=== PATIENT | female | born 1980 | race Caucasian/White ===

== ENCOUNTER 2019-02-24 11:30 | Observation (INO) | payer OTHER ==
[~2019-02-24] VITALS: Ht 172.7 cm; Wt 92.1 kg
--- OUTSIDE RECORDS SUMMARY | 2019-02-24 11:32 | XMS REPORT | Clinical Summary ---
Author Author [facility] Address Unknown Phone Unavailable Care Team Providers Care Advertising Strategist Name Role Phone Gael Hernandez MD PCP Allergies Comments Active Allergy Reactions Severity Noted Date Hydrocodone-Acetaminophen 10/04/2016 Ondansetron 10/04/2016 Medications End Date Status Medication Sig Dispensed Refills Start Date Active PROAIR HFA 90 0 mcg/actuation inhaler 8 Active FLUoxetine (PROzac) 20 MG 0 tablet 8 Active tiZANidine (ZANAFLEX) 4 0 MG tablet 8 Active zolpidem (AMBIEN) 10 mg 0 tablet 8 Active esomeprazole (NexIUM) 40 Take 40 mg by 2 MG capsule mouth daily. 8 Active Problems No known active problems Family History Medical History Relation Name Comments Cancer Brother Hypertension Father No Known Problems Mother Relation Name Status Comments Brother Alive Father Alive Mother Alive Social History Date Tobacco Use Types Packs/Day Years Used Never Smoker Smokeless Tobacco: Never Used Drinks/Week oz/Week Comments Alcohol Use socially Yes Sex Assigned at Date Recorded Not on file Industry Job Start Date Occupation Not on file Not on file Not on file Travel End Travel History Travel Start No recent travel history available. Last Filed Vital Signs Not on file Plan of Treatment Health Maintenance Due Date Last Done Comments CERVICAL CANCER SCREENING 11/05/1999 INFLUENZA VACCINE 01/24/2019 Results Not on fileafter 02/23/2018 Insurance Type Payer Benefit Subscriber ID Effective Phone Address Plan / Dates Group PPO AETNA AETNA PPO xxxxxxxxxx 2012-P OPEN resent CHOICE Advance Directives For more information, please contact: [phone] Patient Training Executive Explanation Type Date Recorded Advance Directives, 08/21/2017 5:12 AM Living Will and Medical Power of Nuclear Worker Technician Advance Directives, 08/21/2017 6:28 PM Living Will and Medical Power of Nuclear Worker Technician Advance Directives, 09/05/2017 9:01 AM Living Will and Medical Power of Nuclear Worker Technician
[2019-02-24] MEDS ORDERED: MORPHINE SULFATE 5 MG/ML VIAL IV ONE (12:15)
[2019-02-24] MEDS ORDERED: PROMETHAZINE 25MG/ NS 50ML (IV) IV ONE (12:15)
[2019-02-24] MEDS ORDERED: IOPAMIDOL 370 MG/ML 200 ML INFUS..BTL INJ ONE (12:42)
[2019-02-24] MEDS ORDERED: SODIUM CHLORIDE 0.9% 50ML 50 ML ONE (12:43)
[2019-02-24] MEDS: SODIUM CHLORIDE 0.9% 1000ML 1,000 ML IV SCH ×2 (12:45→20:30)
[2019-02-24] MEDS ORDERED: MORPHINE SULFATE INJ 4 MG/ML INJ 1ML ONE ×2 (12:46→16:05)
[2019-02-24] MEDS ORDERED: SODIUM CHLORIDE 0.9% 1000ML 1,000 ML ONE (12:46)
[2019-02-24] MEDS ORDERED: PROMETHAZINE HCL (IM) 25 MG/ML VIAL ONE (12:46)
--- NOTE | 2019-02-24 13:51 | Diagnostic Imaging Report ---
EXAM: CT of the abdomen and pelvis WITH contrast HISTORY: Right upper quadrant abdominal pain COMPARISON: None. TECHNIQUE: The abdomen and pelvis were scanned utilizing a multidetector helical scanner. Coronal and sagittal reformats are provided. PROTOCOL: Routine IV CONTRAST: 100 cc of Isovue-370. ORAL CONTRAST: None, which limits sensitivity and specificity of the exam. RADIATION DOSE: Total DLP: 753.58 mGy*cm Estimated effective dose: (DLP x 0.015 x size factor) Dose modulation, iterative reconstruction, and/or weight based adjustment of the mA/kV was utilized to reduce the radiation dose to as low as reasonably achievable. COMPLICATIONS: None FINDINGS: LOWER THORAX: Unremarkable. HEPATOBILIARY: No mass. No biliary dilation. No calcified gallstone. SPLEEN: No splenomegaly. PANCREAS: No focal masses or ductal dilatation. ADRENALS: No discrete adrenal nodule. KIDNEYS/URETERS: No hydronephrosis, stones, or definite solid mass lesions. PELVIC ORGANS/BLADDER: The urinary bladder is predominantly decompressed, which limits evaluation. The uterus is retroverted and mildly anteflexed. A 5.3 cm left adnexal fluid density, no adjacent fat stranding. GI TRACT: No dilation or wall thickening identified. The appendix is normal. PERITONEUM / RETROPERITONEUM: Trace free fluid in the pelvis, likely physiologic. LYMPH NODES: No pathologically enlarged lymph node. VESSELS: Unremarkable. BONES and JOINTS: No aggressive osseous lesion or acute fracture. Bilateral L5 pars interarticularis defects with minimal associated anterolisthesis. SOFT TISSUES: Unremarkable. IMPRESSION: 1. Probable 5.3 cm left ovarian cyst. Recommend a follow-up pelvic ultrasound in 6 weeks to assess for resolution. 2. Trace free fluid in the pelvis, likely physiologic. 3. Bilateral L5 pars interarticularis defects with minimal grade 1 anterolisthesis. 4. Otherwise, no acute CT abnormality. Specifically, no CT finding to definitively explain the right upper quadrant pain. Signed by: Amarjit Mandujano.O., M.M.M. on 02/24/2019 1:47 PM
[2019-02-24] MEDS ORDERED: ACETAMINOPHEN 325 MG TAB PO ONE (14:00)
[2019-02-24] MEDS ORDERED: D5.45%NS/KCL 20MEQ 1,000 ML IV SCH (15:12)
[2019-02-24] MEDS ORDERED: LEVOFLOXACIN 500MG/D5W 100ML IV SCH (15:15)
[2019-02-24] MEDS ORDERED: SODIUM CHLORIDE FLUSH 10 ML SYR INJ PRN (15:15)
--- OUTSIDE RECORDS SUMMARY | 2019-02-24 15:51 | XMS REPORT | Clinical Summary ---
Author Author [facility] Address Unknown Phone Unavailable Care Team Providers Care Shot Grinder Operator Name Role Phone Gael Hernandez MD PCP [...] Advance Directives For more information, please contact: [phone] Patient Line Helper Explanation Type Date Recorded Advance Directives, 08/21/2017 5:12 AM Living Will and Medical Power of Biologist Advance Directives, 08/21/2017 6:28 PM Living Will and Medical Power of Biologist Advance Directives, 09/05/2017 9:01 AM Living Will and Medical Power of Biologist
--- OUTSIDE RECORDS SUMMARY | 2019-02-24 15:51 | XMS REPORT ---
Author Author [facility] Address Unknown Phone Unavailable Care Team Providers Care Coating Manager Name Role Phone ROSEANNA PARKINSON Unavailable Unavailable Problems This patient has no known problems. Allergies, Adverse Reactions, Alerts This patient has no known allergies or adverse reactions. Medications This patient has no known medications. Results Test Description Test Time Test Comments Text Results Atomic Results Result Comments CT ABD/PEL WITH CONTRAST-HOPD 2019-02-24 13:30:00 [place] [address] Patient Name: POOJA GREEN MR #: [id number] : 1980 Age/Sex: 38/F Req #: [id number] Adm Physician: Ordered by: ORSEANNA PARKINSON MD Report #: [id number] Location: [facility] [place] Room/Bed: Procedure: HOPD/CT ABD/PEL WITH CONTRAST-HOPD Exam Date: 02/24/19 Exam Time: 1314 REPORT STATUS: Signed EXAM: CT of the abdomen and pelvis WITH contrast HISTORY: Right upper quadrant abdominal pain COMPARISON: None. TECHNIQUE: The abdomen and pelvis were scanned utilizing a multidetector helical scanner. Coronal and sagittal reformats are provided. PROTOCOL: Routine IV CONTRAST: 100 cc of Isovue-370. ORAL CONTRAST: None, which limits sensitivity and specificity of the exam. RADIATION DOSE: Total DLP: 753.58 mGy*cm Estimated effective dose: (DLP x 0.015 x size factor) Dose modulation, iterative reconstruction, and/or weight based adjustment of the mA/kV was utilized to reduce the radiation dose to as low as reasonably achievable. COMPLICATIONS: None FINDINGS: LOWER THORAX: Unremarkable. HEPATOBILIARY: No mass. No biliary dilation. No calcified gallstone. SPLEEN: No splenomegaly. PANCREAS: No focal masses or ductal dilatation. ADRENALS: No discrete adrenal nodule. KIDNEYS/URETERS: No hydronephrosis, stones, or definite solid mass lesions. PELVIC ORGANS/BLADDER: The urinary bladder is predominantly decompressed, which limits evaluation. The uterus is retroverted and mildly anteflexed. A 5.3 cm left adnexal fluid density, no adjacent fat stranding. GI TRACT: No dilation or wall thickening identified. The appendix is normal. PER ITONEUM / RETROPERITONEUM: Trace free fluid in the pelvis, likely physiologic. LYMPH NODES: No pathologically enlarged lymph node. VESSELS: Unremarkable. BONES and JOINTS: No aggressive osseous lesion or acute fracture. Bilateral L5 pars interarticularis defects with minimal associated anterolisthesis. SOFT TISSUES: Unremarkable. IMPRESSION: 1. Probable 5.3 cm left ovarian cyst. Recommend a follow-up pelvic ultrasound in 6 weeks to assess for resolution. 2. Trace free fluid in the pelvis, likely physiologic. 3. Bilateral L5 pars interarticularis defects with minimal grade 1 anterolisthesis. 4. Otherwise, no acute CT abnormality. Specifically, no CT finding to definitively explain the right upper quadrant pain. Signed by: Dr. Elijah Yan D.O., M.M.M. on 02/24/2019 1:47 PM Dictated By: ELIJAH YAN DO [id number] Transcribed By: JOSEF on 02/24/19 1647 COPY TO: ROSEANNA PARKINSON MD
[2019-02-24] MEDS ORDERED: LEVOFLOXACIN IV ONE (15:55)
[2019-02-24] MEDS ORDERED: [UNRECOGNIZED DRUG - OTHER] IV ONE (15:55)
[2019-02-24] MEDS ORDERED: LEVOFLOXACIN 500MG/D5W 100ML 100 ML IV ONE (15:57)
[2019-02-24] MEDS: LEVOFLOXACIN 500MG/D5W 100ML 100 ML IV SCH (16:00)
[2019-02-24] MEDS: MORPHINE SULFATE 2 MG/ML SYR 1ML IV PRN ×2 (16:03→20:30)
--- NOTE | 2019-02-24 16:48 | Diagnostic Imaging Report ---
RIGHT UPPER QUADRANT ULTRASOUND TECHNIQUE: Ultrasound evaluation of the right upper quadrant abdomen. Color Doppler evaluation was utilized to supplement the evaluation. HISTORY: Right upper quadrant pain COMPARISON: CT of the abdomen from the same date DISCUSSION: LIVER: No focal lesion identified. The liver measures 17 cm in length in the right mid-clavicular line. BILIARY: No gallbladder stone, wall thickening, or pericholecystic fluid. The sonographic Borja's sign is reported as negative. Common bile duct measures 0.5 cm. RIGHT KIDNEY: 9 cm in length. No hydronephrosis, solid mass, or cystic lesion identified. PANCREAS: Obscured by regional bowel gas. PERITONEUM: No free fluid. VASCULATURE: The visualized portions of the aorta and inferior vena cava appear unremarkable. The portal vein is patent with hepatopedal flow. IMPRESSION: No acute sonographic abnormality. Signed by: Dr. Elijah Chen D.O., M.M.M. on 02/24/2019 4:45 PM
[2019-02-24] MEDS ORDERED: MORPHINE SULFATE INJ 4 MG/ML INJ 1ML IV ONE (18:00)
[2019-02-24 18:34] VITALS: BP 102/71
[2019-02-24] MEDS ORDERED: SINGULAIR10 MG PO (18:34)
[2019-02-24] MEDS ORDERED: LUNESTA3 MG PO (18:34)
[2019-02-24] MEDS ORDERED: CLONAZEPAM1 MG PO (18:34)
--- NOTE | 2019-02-24 20:29 | Consultation ---
DATE OF CONSULTATION: 02/24/2019 HISTORY OF PRESENT ILLNESS: The patient is a 38-year-old female, who presents with complaints of right upper quadrant abdominal pain. She has had this pain off and on for many years, she says since she was 23, this became become worse in the last few months. She has previously been evaluated, and was scheduled for cholecystectomy about 4 years ago, but this was not done because they found out she was . Evaluation thus far has not revealed any gallstones. Apparently, she had abnormal bile duct in the past and concern that she is passing stones. The patient says still has pain now. She denies nausea, vomiting, or fever. Ultrasound of the gallbladder did not reveal any gallstones. CT scan of the abdomen also did not reveal any findings that would explain her upper abdominal pain. PAST MEDICAL HISTORY: Significant for anxiety disorder. She has a history of asthma. MEDICATIONS: Takes at home are clonazepam, Lunesta, and Singulair. ALLERGIES: SHE HAS ALLERGY TO HYDROCODONE AND ONDANSETRON. PAST SURGICAL HISTORY: She has had previous surgery on her arm. FAMILY HISTORY: Noncontributory. SOCIAL HISTORY: The patient does not smoke cigarettes. Occasionally, drinks alcohol. REVIEW OF SYSTEMS: As stated above. She has had no fever, no weight loss. PHYSICAL EXAMINATION: GENERAL: The patient is awake, alert, in no distress. VITAL SIGNS: Normal. HEENT: There is no scleral icterus. NECK: No masses. LUNGS: Equal breath sounds are clear bilaterally. CARDIAC: Regular rate and rhythm with no murmur. ABDOMEN: Mildly tender in the epigastrium. There is no mass. No organomegaly. No signs of peritonitis. EXTREMITIES: Have no edema. Pulses are palpable. NEUROLOGIC: Intact. LABORATORY DATA: White blood cell count was normal. Hemoglobin and hematocrit are normal. Chemistries also reveal normal liver function tests, normal lipase. ASSESSMENT: A 38-year-old female with persistent recurrent episodes of right upper quadrant abdominal pain, this most likely represents gallbladder disease. She is to be evaluated further with a HIDA scan. There is no signs of peritonitis or findings that would warrant immediate surgical intervention. Thank you for asking me to see Ms. Saji Field. MD DAVIS Gallegos/WALLACE Ocasio: 02/24/2019 19:30:16 /[id number]
[2019-02-24 20:30] VITALS: BP 102/71
[2019-02-24] MEDS ORDERED: AMBIEN10 MG PO (20:35)
[2019-02-24] MEDS ORDERED: NON-FORMULARY MEDICATION (Eszopiclone (Lunesta) 3 MG) PO SCH (21:00)
[2019-02-24 21:27] VITALS: BP 116/80
[2019-02-24] MEDS: CLONAZEPAM 1 MG TAB PO PRN (23:14)
[2019-02-24 23:58] VITALS: BP 122/81
[2019-02-25] VITALS (7 sets, daily range): BP systolic 100–136; BP diastolic 76–91
[2019-02-25] MEDS: MORPHINE SULFATE 2 MG/ML SYR 1ML IV PRN (00:35)
[2019-02-25] MEDS ORDERED: SODIUM CHLORIDE 0.9% 50ML 50 ML ONE ×4 (00:47→19:58)
[2019-02-25] MEDS: PROMETHAZINE HCL (IM) 25 MG/ML VIAL IV PRN ×4 (01:07→20:29)
[2019-02-25] MEDS: ZOLPIDEM TARTRATE 10 MG TAB PO SCH ×2 (01:50→21:10)
[2019-02-25] MEDS: SODIUM CHLORIDE 0.9% 1000ML 1,000 ML IV SCH ×2 (07:20→18:15)
[2019-02-25] MEDS: MONTELUKAST SODIUM 10 MG TAB PO SCH (08:48)
[2019-02-25] MEDS: HYDROMORPHONE 1MG/1ML INJ IV PRN ×3 (10:47→20:29)
--- NOTE | 2019-02-25 10:49 | Diagnostic Imaging Report ---
Hepatobiliary Scan with Gallbladder Ejection Fraction Clinical information: Abdominal pain x 2 weeks Comparison: Abdominal ultrasound 02/24/2019; CT abdo/pelvis 02/24/2019 Technique: Following intravenous administration of 6.6 millicuries of Tc-99m mebrofenin, dynamic images of the abdomen in the anterior projection were obtained through 17 minutes. Sincalide (CCK analog) 1.7 micrograms was administered intravenously over 30 minutes with additional imaging for determination of gallbladder ejection fraction. Discussion: Perfusion of the liver is normal. Extraction of tracer by the liver parenchyma is normal. Tracer appears promptly within the biliary tract. The gallbladder begins to fill at 10 minutes post injection of tracer and fills adequately. Tracer is seen in the small bowel during the sincalide infusion. There is no contractile response by the gallbladder to the pharmacologic dose of sincalide. No emptying of the gallbladder occurs during the 30 minute infusion. Impression: 1. Filling of the gallbladder excludes acute cystic duct obstruction/acute cholecystitis. 2. The gallbladder ejection fraction is undefined as there is no emptying of the gallbladder during the infusion of sincalide. This absence of a contractile response to sincalide supports the clinical diagnosis of chronic cholecystitis/gallbladder dyskinesia. Signed by: Dr. Margi Tovar M.D. on 02/25/2019 10:46 AM
[2019-02-25] MEDS: LEVOFLOXACIN 500MG/D5W 100ML 100 ML IV SCH (16:28)
[2019-02-25] MEDS: CLONAZEPAM 1 MG TAB PO PRN ×2 (16:28→22:31)
[2019-02-26] VITALS (9 sets, daily range): BP systolic 112–133; BP diastolic 73–90
[2019-02-26] MEDS: SODIUM CHLORIDE 0.9% 1000ML 1,000 ML IV SCH ×2 (05:05→14:15)
[2019-02-26] MEDS: PROMETHAZINE HCL (IM) 25 MG/ML VIAL IV PRN ×3 (05:22→17:19)
[2019-02-26] MEDS: HYDROMORPHONE 1MG/1ML INJ IV PRN ×4 (05:22→20:31)
[2019-02-26 05:25] LABS: BASOPHILS % 0.4 % (0.0-1.0); EOSINOPHILS # (AUTO) 0.1 (0.0-0.4); HEMATOCRIT 32.6 % (34.2-44.1); LYMPHOCYTES # (AUTO) 1.5 (1.0-3.2); LYMPHOCYTES % 31.7 % (18.0-39.1); MEAN CORPUSCULAR HEMOGLOBIN 31.6 pg (28-32); MEAN CORPUSCULAR HGB CONC 33.7 g/dL (31-35); MEAN CORPUSCULAR VOLUME 93.7 fL (81-99); MONOCYTES # (AUTO) 0.4 (0.2-0.8); MONOCYTES % 8.5 % (4.4-11.3); NEUTROPHILS # (AUTO) 2.7 (2.1-6.9); NEUTROPHILS % 56.2 % (38.7-80.0); PLATELET COUNT 242 x10e3/uL (140-360); RED BLOOD COUNT 3.48 x10e6/uL (3.6-5.1); RED CELL DISTRIBUTION WIDTH 12.6 % (11.7-14.4)
[2019-02-26 05:49] LABS: ANION GAP 11.2 mmol/L (8-16); BLOOD UREA NITROGEN 9 mg/dL (7-26); BUN/CREATININE RATIO 12 (6-25); CALCIUM 8.8 mg/dL (8.4-10.2); CARBON DIOXIDE 23 mmol/L (22-29); CHLORIDE 108 mmol/L (98-107); CREATININE, SERUM 0.76 mg/dL (0.57-1.11); EST GLOMERULAR FILTRATION RATE > 60 ML/MIN (60-); GLUCOSE 92 mg/dL (74-118); POTASSIUM 4.2 mmol/L (3.5-5.1); SODIUM 138 mmol/L (136-145)
[2019-02-26] MEDS: FAMOTIDINE 20 MG TAB PO SCH (07:26)
[2019-02-26] MEDS: MONTELUKAST SODIUM 10 MG TAB PO SCH (07:26)
[2019-02-26] MEDS ORDERED: BUPIVACAINE HCL 0.5% INJ 30 ML VIAL INJ ONE (09:31)
[2019-02-26] MEDS ORDERED: SODIUM CHLORIDE 0.9% 50ML 50 ML ONE ×2 (09:39→17:03)
[2019-02-26] MEDS ORDERED: TRAMADOL HCL 50 MG TAB PO PRN (13:00)
[2019-02-26] MEDS ORDERED: ONDANSETRON HCL INJ 2MG/ML 2ML 2 MG/ML VIAL IV PRN (13:00)
[2019-02-26] MEDS ORDERED: MEPERIDINE HCL INJ 25 MG/ML VIAL ONE (13:42)
[2019-02-26] MEDS: LEVOFLOXACIN 500MG/D5W 100ML 100 ML IV SCH (16:16)
[2019-02-26] MEDS ORDERED: ROCURONIUM BROMIDE 10 MG/ML 5ML VIAL ONE (17:41)
[2019-02-26] MEDS ORDERED: NEOSTIGMINE 5 MG/5ML SYR ONE (17:41)
[2019-02-26] MEDS ORDERED: GLYCOPYRROLATE INJ 1MG/ 5 ML SYR ONE (17:41)
[2019-02-26] MEDS ORDERED: PROPOFOL IV EMULSION 10 MG/ML 20 ML VIAL ONE (17:41)
[2019-02-26] MEDS ORDERED: LIDOCAINE HCL 2% LOCAL INJ 5 ML SDV VIAL INJ ONE (17:41)
[2019-02-26] MEDS ORDERED: DEXAMETHASONE SOD PHOS INJ 4 MG/ML VIAL ONE (17:41)
[2019-02-26] MEDS ORDERED: KETOROLAC TROMETHAMINE 30 MG/ML VIAL ONE (17:41)
[2019-02-26] MEDS ORDERED: SEVOFLURANE INHAL SOLN 250 ML PEN BTL ONE (17:41)
--- NOTE | 2019-02-26 17:59 | Operative Report ---
DATE OF PROCEDURE: 02/26/2019 SURGEON: Myles Yap MD PREOPERATIVE DIAGNOSIS: Acute on chronic cholecystitis. POSTOPERATIVE DIAGNOSIS: Acute on chronic cholecystitis. PROCEDURES: Diagnostic laparoscopy, laparoscopic cholecystectomy. CHEMICAL DEPENDENCY PROFESSIONAL: None. ANESTHESIA: General. INDICATIONS AND FINDINGS: The patient is a 38-year-old female presenting with complaints of severe epigastric right upper quadrant abdominal pain. Workup revealed abnormal HIDA scan with 0% ejection fraction. Surgery based on the gallbladder was distended with some changes of cholesterolosis. Cystic duct was about 2 mm in diameter. Common bile duct was about 5 mm in diameter. Liver, stomach, lower abdomen all appeared normal. TECHNIQUE: After adequate general endotracheal anesthesia with the patient in supine position, the abdomen was prepped and draped in sterile fashion with ChloraPrep solution. Skin in the umbilicus was infiltrated with 0.5% Marcaine. Incision made in the umbilicus, abdominal wall was elevated and Veress needle was introduced. Pneumoperitoneum was then created. A 10 mm trocar and cannula was then passed through the umbilical wound. Laparoscopic camera was introduced. Initial laparoscopy revealed the gallbladder to be mildly distended with some changes of cholesterolosis. Liver, stomach, and lower abdomen all appeared normal. A 10 mm trocar and cannula was placed in the epigastrium and two 5 mm trocars and cannulas were placed in the right upper quadrant, these were placed under direct vision. Fundus of the gallbladder was grasped, retracted superiorly. There were adhesions over the neck and fundus of the gallbladder involving omentum which were lysed. Neck of the gallbladder was grasped, retracted laterally. Peritoneum over the neck of the gallbladder was incised. The gallbladder cystic duct junction was dissected free. Cystic artery was also dissected free. Cystic artery was divided between hemoclips close to the gallbladder. Cystic duct was also divided between hemoclips with three clips being left on the common bile duct side. The gallbladder was dissected free from the liver using scissors and electrocautery. Once it was entirely free, it was placed into an Endopouch and brought through the epigastric cannula. There were no stones palpable. Gallbladder bed was inspected for hemostasis, which was seen to be adequate. It was irrigated with saline. All fluid aspirated, inspected once again for hemostasis, which was seen to be adequate. Instruments and cannulas were then removed. Pneumoperitoneum was evacuated. Wounds were then closed. Fascia in the umbilical and epigastric wound closed with 0 Vicryl. Skin to all wounds closed with 4-0 Vicryl in subcuticular fashion. Dermabond and sterile dressing were applied to each wound. The patient tolerated the procedure well. Estimated blood loss was 5 mL. There were no complications. All counts were correct. The patient was taken to the recovery room in satisfactory condition. MD DAVIS Gallegos/AURAL /[id number] cc: Kunal Genao MD
[2019-02-26] MEDS ORDERED: FENTANYL CITRATE/PF 100MCG/2 ML INJ ONE (18:23)
[2019-02-26] MEDS ORDERED: MIDAZOLAM HCL 2 MG/2 ML VIAL ONE (18:23)
[2019-02-26] MEDS: CLONAZEPAM 1 MG TAB PO PRN (20:33)
[2019-02-26] MEDS: ZOLPIDEM TARTRATE 10 MG TAB PO SCH (21:14)
[2019-02-27] VITALS: BP 121/78
[2019-02-27] MEDS: SODIUM CHLORIDE 0.9% 1000ML 1,000 ML IV SCH ×2 (00:15→10:30)
[2019-02-27 00:28] LABS: BASOPHILS % 0.2 % (0.0-1.0); HEMATOCRIT 33.5 % (34.2-44.1); HEMOGLOBIN 11.2 g/dL (12.0-16.0); LYMPHOCYTES # (AUTO) 0.6 (1.0-3.2); LYMPHOCYTES % 11.5 % (18.0-39.1); MEAN CORPUSCULAR HEMOGLOBIN 31.6 pg (28-32); MEAN CORPUSCULAR HGB CONC 33.4 g/dL (31-35); MEAN CORPUSCULAR VOLUME 94.6 fL (81-99); MONOCYTES # (AUTO) 0.2 (0.2-0.8); MONOCYTES % 3.7 % (4.4-11.3); NEUTROPHILS # (AUTO) 4.6 (2.1-6.9); NEUTROPHILS % 84.4 % (38.7-80.0); PLATELET COUNT 269 x10e3/uL (140-360); RED BLOOD COUNT 3.54 x10e6/uL (3.6-5.1); RED CELL DISTRIBUTION WIDTH 12.3 % (11.7-14.4)
[2019-02-27] MEDS: HYDROMORPHONE 1MG/1ML INJ IV PRN (00:30)
[2019-02-27] MEDS: PROMETHAZINE HCL (IM) 25 MG/ML VIAL IV PRN ×3 (00:44→10:45)
[2019-02-27 00:56] LABS: BLOOD UREA NITROGEN 8 mg/dL (7-26); BUN/CREATININE RATIO 10 (6-25); CALCIUM 8.7 mg/dL (8.4-10.2); CARBON DIOXIDE 23 mmol/L (22-29); CHLORIDE 106 mmol/L (98-107); CREATININE, SERUM 0.78 mg/dL (0.57-1.11); EST GLOMERULAR FILTRATION RATE > 60 ML/MIN (60-); GLUCOSE 119 mg/dL (74-118); MAGNESIUM 1.9 MG/DL (1.3-2.1); PHOSPHORUS 2.3 MG/DL (2.3-4.7); SODIUM 136 mmol/L (136-145)
[2019-02-27 04:00] VITALS: BP 121/78
[2019-02-27] MEDS ORDERED: TYLENOL # 31 EA PO (04:30)
[2019-02-27] MEDS ORDERED: HYDROCODONE/APAP 5MG-325MG TAB PO PRN (04:45)
[2019-02-27] MEDS ORDERED: ACETAMINOPHEN/CODEINE 300MG - 30MG TAB PO PRN (04:45)
[2019-02-27] MEDS ORDERED: ZOFRAN4 MG PO (04:54)
[2019-02-27] MEDS: ACETAMINOPHEN/CODEINE 300MG - 30MG TAB PO PRN ×2 (05:08→10:45)
[2019-02-27 08:00] VITALS: BP 98/56
[2019-02-27] MEDS: MONTELUKAST SODIUM 10 MG TAB PO SCH (09:45)
[2019-02-27] MEDS: FAMOTIDINE 20 MG TAB PO SCH (09:45)
[2019-02-27] MEDS ORDERED: SODIUM CHLORIDE 0.9% 50ML 50 ML ONE (10:39)
[2019-02-27 11:08] VITALS: BP 113/76
[2019-02-27 12:00] VITALS: BP 116/69
[2019-02-27] MEDS: CLONAZEPAM 1 MG TAB PO PRN (12:28)
--- NOTE | 2019-03-05 05:27 | Discharge Summary ---
ADMISSION DIAGNOSES: Abdominal pain, nausea, asthma, anxiety. DISCHARGE DIAGNOSES: Abdominal pain, nausea, asthma, anxiety, gallbladder dyskinesia. SURGICAL HISTORY: Arm surgery. FAMILY HISTORY: Noncontributory. SOCIAL HISTORY: Occasional alcohol use. HOSPITAL COURSE: A 38-year-old female, who admits with right upper quadrant abdominal pain. She was originally evaluated for cholecystectomy, though found out she was . She denies fever or chills, nausea and vomiting. Ultrasound of the abdomen shows no gallstones. HIDA scan was ordered, which then showed undefined EF of the gallbladder, which supports the clinical diagnosis of chronic cholecystitis/gallbladder dyskinesia. Surgery was consulted and the patient had a laparoscopic cholecystectomy on 02/26/2019. The patient tolerated the procedure well. Diet was advanced and she was ready to be discharged home. She will continue home medicines plus Tylenol No.3 p.r.n. pain. Vital signs stable. The patient is afebrile. The patient understands discharge instructions and agrees to plan. Dictated by Fani Gonzáles NP MD PANCHITO Nelson/WALLACE /[id number]
== END 2019-02-27 14:14 | disposition home or self-care (01) ==
LOC: FSED 11:30 → ERHOLD 15:24 → MED/SURG 18:10
PROVIDERS: ADMIT Internal Medicine; ATTEND Internal Medicine
DX: K81.0 Acute cholecystitis (principal); K82.8 Other specified diseases of gallbladder; J45.21 Mild intermittent asthma with (acute) exacerbation; F41.9 Anxiety disorder, unspecified; Z88.5 Allergy status to narcotic agent; Z88.8 Allergy status to other drugs, medicaments and biological substances
CPT/HCPCS: 36415 ×3; 47562; 74177; 76705; 78227; 80048 ×3; 80076; 81025 ×2; 83690; 83735; 84100; 85025 ×3; 88304; 93005; 96374; 96375; 99284; A9537; G0378 ×4; J1100; J1170 ×3; J1885; J1956 ×3; J2001; J2175; J2250; J2270 ×3; J2550 ×4; J2704; J3010; J3490; J7030 ×4; Q9967

== ENCOUNTER 2021-02-03 18:30 | Emergency (ER) | payer OTHER ==
[~2021-02-03] VITALS: Ht 175.3 cm; Wt 90.7 kg
[~2021-02-03 18:30] MED LIST: AMBIEN10 MG PO; CLONAZEPAM1 MG PO; LUNESTA3 MG PO; SINGULAIR10 MG PO; TYLENOL # 31 EA PO; ZOFRAN4 MG PO
[2021-02-03] MEDS ORDERED: KETOROLAC TROMETHAMINE 30 MG/ML VIAL IM STA (19:11)
[2021-02-03] MEDS ORDERED: ACETAMINOPHEN 325 MG TAB PO ONE (19:15)
[2021-02-03 19:26] VITALS: BP 132/76
[2021-02-03] MEDS ORDERED: CODEINE-GUAIFE120 ML PO (19:54)
[2021-02-03] MEDS ORDERED: CASIRIVIMAB/IMDEVIMAB 10 ML in SODIUM CHLORIDE 0.9% 100 ML IV ONE (21:45)
== END 2021-02-03 23:37 | disposition home or self-care (01) ==
LOC: ER 18:58
DX: U07.1 COVID-19 (principal)
CPT/HCPCS: 99283; J1885; U0002

== ENCOUNTER 2022-10-26 08:45 | Emergency (ER) | payer OTHER ==
[~2022-10-26] VITALS: Ht 175.3 cm; Wt 90.7 kg
[~2022-10-26 08:45] MED LIST changes: +CODEINE-GUAIFE120 ML PO
[2022-10-26] MEDS ORDERED: KETOROLAC TROMETHAMINE 30 MG/ML VIAL IV STA (09:30)
[2022-10-26] MEDS ORDERED: SODIUM CHLORIDE 0.9% 1000ML 1,000 ML IV STA (09:30)
[2022-10-26] MEDS ORDERED: DIPHENHYDRAMINE HCL INJ 50 MG/ML VIAL IV ONE (09:30)
[2022-10-26] MEDS ORDERED: PROMETHAZINE 12.5MG/ NACL 0.9% 12.5 MG/50 ML BAG IV ONE (09:30)
[2022-10-26 09:45] LABS: BASOPHILS % 0.6 % (0.0-1.0); EOSINOPHILS # (AUTO) 0.1 (0.0-0.4); EOSINOPHILS % 2.2 % (0.0-6.0); HEMATOCRIT 39.7 % (34.2-44.1); HEMOGLOBIN 13.5 g/dL (12.0-16.0); LYMPHOCYTES # (AUTO) 2.7 (1.0-3.2); LYMPHOCYTES % 43.5 % (18.0-39.1); MEAN CORPUSCULAR HEMOGLOBIN 30.5 pg (28-32); MEAN CORPUSCULAR VOLUME 89.8 fL (81-99); MONOCYTES # (AUTO) 0.5 (0.2-0.8); MONOCYTES % 7.6 % (4.4-11.3); NEUTROPHILS # (AUTO) 2.9 (2.1-6.9); NEUTROPHILS % 45.9 % (38.7-80.0); PLATELET COUNT 354 x10e3/uL (140-360); RED BLOOD COUNT 4.42 x10e6/uL (3.6-5.1); RED CELL DISTRIBUTION WIDTH 11.7 % (11.7-14.4)
[2022-10-26 10:06] LABS: ALANINE AMINOTRANSFERASE 11 IU/L (0-55); ALBUMIN 3.9 g/dL (3.5-5.0); ALBUMIN/GLOBULIN RATIO 1.1 (0.8-2.0); ALKALINE PHOSPHATASE 69 IU/L (40-150); ANION GAP 12.7 mmol/L (8-16); BLOOD UREA NITROGEN 17 mg/dL (7-26); BUN/CREATININE RATIO 20 (6-25); CALCIUM 9.3 mg/dL (8.4-10.2); CARBON DIOXIDE 20 mmol/L (22-29); CHLORIDE 107 mmol/L (98-107); CREATININE, SERUM 0.87 mg/dL (0.57-1.11); GLUCOSE 73 mg/dL (74-118); LIPASE 47 U/L (8-78); MAGNESIUM 1.7 MG/DL (1.3-2.1); POTASSIUM 3.7 mmol/L (3.5-5.1); SODIUM 136 mmol/L (136-145)
[2022-10-26 10:17] LABS: AMPHETAMINES SCREEN,URINE NEGATIVE (NEGATIVE); PHENCYCLIDINE SCREEN,URINE NEGATIVE (NEGATIVE)
[2022-10-26 10:18] LABS: BENZODIAZEPINES SCREEN,URINE NEGATIVE (NEGATIVE); CLARITY,URINE CLEAR (CLEAR); COLOR,URINE YELLOW (YELLOW); KETONES,URINE NEGATIVE (NEGATIVE); LEUKOCYTE ESTERASE ,URINE NEGATIVE (NEGATIVE); NITRITE,URINE NEGATIVE (NEGATIVE); PROTEIN,URINE DIPSTICK NEGATIVE (NEGATIVE); URINE UROBILINOGEN 0.2 mg/dL (0.2 - 1)
[2022-10-26 10:26] LABS: EPITHELIAL CELLS,URINE MODERATE /LPF
[2022-10-26 10:27] LABS: BACTERIA,URINE FEW /HPF; WBC,URINE (MAN) 0-5 /HPF (0-5)
[2022-10-26] MEDS ORDERED: IOPAMIDOL 370 MG/ML 100 ML INFUS..BTL INJ ONE (10:44)
[2022-10-26] MEDS ORDERED: PROMETHAZINE HC25 M1 PO (11:33)
[2022-10-26 11:52] VITALS: BP 119/80; PULSE 84; RESP 17; TEMP 98.6; O2SAT 99
== END 2022-10-26 11:53 | disposition home or self-care (01) ==
LOC: ER 08:55
DX: R50.9 Fever, unspecified (principal); R10.9 Unspecified abdominal pain; S00.83XA Contusion of other part of head, initial encounter; R11.2 Nausea with vomiting, unspecified; W01.198A Fall on same level from slipping, tripping and stumbling with subsequent striking against other object, initial encounter; K76.89 Other specified diseases of liver; M06.9 Rheumatoid arthritis, unspecified; F41.9 Anxiety disorder, unspecified; Z20.822 Contact with and (suspected) exposure to COVID-19
CPT/HCPCS: 36415; 70450; 74177; 80053; 80307; 81001; 83690; 83735; 84484; 84702; 85025; 87086; 99284; J1200; J1885; J2550; J7030; Q9967; U0002